=== PATIENT | female | born 1955 | race Caucasian/White ===

== ENCOUNTER 2019-01-20 23:13 | Inpatient (IN) | payer MEDICAID ==
[~2019-01-20] VITALS: Ht 165.1 cm; Wt 71.7 kg
[2019-01-21] MEDS ORDERED: ATARAX,VISTARIL50 MG PO (00:06)
[2019-01-21] MEDS ORDERED: LOXAPINE SUCCIN10 MG PO (00:08)
[2019-01-21] MEDS ORDERED: VRAYLAR6 MG PO (00:10)
[2019-01-21] MEDS ORDERED: ZYPREXA5 M1 PO (00:11)
[2019-01-21] MEDS ORDERED: NORVASC10 MG PO (00:12)
[2019-01-21] MEDS ORDERED: ASPIRIN ADULT L81 M1 PO (00:12)
[2019-01-21] MEDS ORDERED: LIPITOR80 MG PO (00:13)
[2019-01-21] MEDS ORDERED: FEROSUL325 MG PO (00:14)
[2019-01-21] MEDS ORDERED: BENZTROPINE MESY1 MG PO (00:14)
[2019-01-21] MEDS ORDERED: KLONOPIN0.5 MG PO (00:15)
[2019-01-21] MEDS ORDERED: GLUCAGON EMERGEN1 M1 IJ (00:16)
[2019-01-21] MEDS ORDERED: LEVEMIR100 UNIT/1 SQ (00:17)
[2019-01-21] MEDS ORDERED: NOVOLOG10 ML SC (00:19)
[2019-01-21] MEDS ORDERED: SENNA LAXATIVE1 EACH PO (00:20)
--- NOTE | 2019-01-21 01:45 | NUR ---
DILIA HUTCHISON a 63 year old F admitted via stretcher from the ADMITTING as a voluntary admission. Arrived on unit at 0145. ALLERGIES: CLOZAPIN,HALDOL. Vital signs are: [id number]/73. The Legal Guardian,Sisi Wade,gave verbal consent over telephone for the following: Authorization For The Release of Medical Information, Clothing List, Consent to Voluntary Admission and Hospitalization, Consent and Release Forms/Receipt of Rights, Acknowledgement of Advance Directive Information, Behavioral Health Consent Form, and Informed Consent of Medications. Admitted under the services of Dr. BETTYE FLORES,[facility]. A search was conducted and hazardous articles were removed. Client was oriented to the unit. VIVI BARRERA
[2019-01-21 02:13] VITALS: BP 152/73
[2019-01-21 02:15] VITALS: BP 152/73
--- NOTE | 2019-01-21 02:30 | NUR ---
Skin assessment performed with consent of patient. Skin intact and no signs of any wounds noted.
--- NOTE | 2019-01-21 03:00 | NUR ---
Dr. Monaco here to see patient. Notified him of no wounds on patient after skin assessment was done. Awaiting orders.
--- NOTE | 2019-01-21 04:48 | NUR ---
Patient slept approx. 2 hours since being admitted this shift. Q 15 minute safety checks continued and maintained.
[2019-01-21 06:26] LABS: BILIRUBIN NEGATIVE (NEGATIVE); BLOOD NEGATIVE (NEGATIVE); CLARITY SL CLOUDY (CLEAR); COLOR YELLOW (YELLOW); GLUCOSE NEGATIVE (NEGATIVE); KETONE NEGATIVE (NEGATIVE); LEUKO ESTERASE 1+ (NEGATIVE); NITRITE NEGATIVE (NEGATIVE); UROBILINOGEN 0.2 E.U./dl (0.2-1.0)
[2019-01-21 07:30] LABS: BACTERIA 2+; WBC TNTC wbc/hpf (0-5)
[2019-01-21 07:32] VITALS: BP 139/70
--- NOTE | 2019-01-21 08:10 | NUR ---
Treatment Plan meeting with Dr. Trujillo, RN, AT, SW and Reception Specialist. Plan for discharge next week. Pt. came to [facility] from [facility].
--- NOTE | 2019-01-21 08:14 | NUR ---
DR. COFFEY ON UNIT TO ASSESS PT, UPDATE PROVIDED.
--- NOTE | 2019-01-21 10:09 | NUR ---
Spoke with Cristina at [facility]. Pt. is LTC at facility and will return at discharge. Facility has a VAN for transportation and will require several Day notice to arrange.
[2019-01-21 10:11] LABS: BASO # 0.1 10*3/uL (0.0-0.1); BASO % 0.7 % (0.0-1.0); EOS # 0.2 10*3/uL (0.0-0.4); EOS % 1.9 % (1.0-4.0); HEMOGLOBIN 11.2 g/dl (12.0-16.0); LYMPH # 2.2 10*3/uL (1.3-4.4); LYMPH % 25.4 % (27.0-41.0); MEAN CELL VOLUME 91.4 fl (81.0-99.0); MEAN CORPUSCULAR HGB 28.4 pg (27.0-31.0); MEAN CORPUSCULAR HGB CONC 31.1 g/dl (33.0-37.0); MEAN PLATELET VOLUME 12.9 fl (9.6-12.3); MONO # 0.5 10*3/uL (0.1-1.0); MONO % 6.1 % (3.0-9.0); NEUT # 5.8 10*3/uL (2.3-7.9); NEUT % 65.6 % (47.0-73.0); PLATELET COUNT AUTOMATED 212 10*3/uL (130-400); RED BLOOD COUNT 3.94 10*6/uL (4.10-5.10); RED CELL DISTRI WIDTH 14.2 % (0-14.5); WHITE BLOOD COUNT 8.8 10*3/uL (4.8-10.8)
[2019-01-21 10:30] LABS: ALBUMIN 3.4 gm/dl (3.1-4.5); CREATININE 1.7 mg/dL (0.55-1.02); POTASSIUM 4.1 mmol/L (3.5-5.1); TOTAL PROTEIN 7.6 gm/dL (6.4-8.2)
[2019-01-21 10:37] LABS: THYROID STIM HORMONE (HS) 0.626 uIU/ml (0.358-4.75)
[2019-01-21 11:18] LABS: VITAMIN D, 25-HYDROXY 11.1 ng/mL (30-100)
--- NOTE | 2019-01-21 11:24 | NUR ---
SPOKE DR. WRIGHT AT [phone], RE: PT LABS BACK FOR REVIEW, ADVSIED OF BUN AND CREATININE LEVELS ARE ELEVATED AND STAFF IS ENCOURAGING FLUIDS. NO FURHTER ORDERS AT THIS TIME.
--- NOTE | 2019-01-21 11:46 | NUR ---
AM GROUP PT WAS PRESENT AT THE START OF GROUP AND PARTICIPATED BY DRAWING WITH MARKERS. PT WAS SELECTIVELY MUTE AND CONTINUED TO GET UP AND LEAVE THE GROUP ROOM. PT EXHIBITED NO AGITATION OR AGGRESSION WHILE IN THE GROUP ROOM
--- NOTE | 2019-01-21 13:58 | NUR ---
PHYSICAL THERAPY Physical therapy screen complete. Patient independent with ambulation in room and throughout BHU. Discharge PT order. Thank you. Tati Harris,PT,DPT.
--- NOTE | 2019-01-21 14:15 | NUR ---
Occupational Therapy referral received and screen completed. Nursing reports that patient is able to perform basic self care with supervision and cues. Patient is currently ambulating independently on the 3N unit and is preoccupied with the entrance door and attempts to leave the locked unit. At this time no further OT indicated. Discharge OT referral. Thank you. Fanny Soto OTr/Jackie
--- NOTE | 2019-01-21 15:48 | NUR ---
PM GROUP/ART AND MUSIC PT WAS PRESENT AT THE START OF AFTERNOON GROUP THERAPY AND WAS GIVEN MARKERS AND PAPER. PT GOT UP AND STATED, "JW IS WAITING FOR ME AT THE DOOR. I GOTTA GO MEET HIM THERE." PT LEFT THE ACTIVITY ROOM AND WENT TOWARDS THE EXIT. PT WAS NOT REDIRECTABLE AND REFUSED TO RETURN TO THE GROUP.
--- NOTE | 2019-01-21 18:16 | NUR ---
SPOKE WITH [facility] PER DR. WRIGHT REQUEST FOR PAST LABS SPECIFICALLY BMP, PER NURSE SHE WILL NOTIFY THE CURATOR OF PHOTOGRAPHY AND PRINTS AND FAX THEM OVER SOON POSSIBLE. DR. WRIGHT NOTIFIFED.
[2019-01-21 19:54] VITALS: BP 116/84
--- NOTE | 2019-01-21 20:00 | NUR ---
Patient resting quietly with no c/o discomfort. Respirations easy and regular. Vital signs stable. No overt distress. OPAL BABB
--- NOTE | 2019-01-21 22:51 | NUR ---
PT PACING HALLS, SPEECH GARBLED AND SLURRED. PT ASSESSED FOR ORIENTATION LEVEL, MOOD AND AFFECT. ASSESSED FOR SI/HI. ASSESSED FOR HALLUCINATIONS OR DELUSIONS. PT APPEARS ORIENTED TO PERSON ONLY. MOOD IS ANXIOUS, PT STATING SOMETHING ABOUT HER BROTHER. AFFECT IS FLAT. PT SPEECH IS GARBLED AND SLURRED, HINDERING FULL ASSESSMENT. PT DENIES WANTING TO HARM SELF OR OTHERS. PT IS IN HALLS LOOKING FOR HER BROTHER. PT REDIRECTED, REORIENTED, PROVIDED WITH CALM 1:1. PT ASSISTED BACK TO BED. WILL CONTINUE TO REORIENT AND REDIRECT PT APPROPRIATE. WILL ENCOURAGE PT TO VERBALIZE WANTS AND NEEDS. WILL CONTINUE TO ASSESS FOR HALLUCINATIONS AND DELUSIONS. Q15 MONITORING FOR SAFETY.
--- NOTE | 2019-01-22 01:59 | NUR ---
24 HR chart check completed.
--- NOTE | 2019-01-22 06:01 | NUR ---
PT SLEPT AN INTERRUPTED 6 HOURS THIS SHIFT.
--- NOTE | 2019-01-22 07:49 | NUR ---
PT AWAKE AND ALERT. DIRECTED AWAY FROM THE UNIT DOOR THIS AM BY MENTAL HEALTH WORKER AND ASSISTED TO DINING ROOM FOR BREAKFAST. PT REFUSED VITALS THIS AM DESPITE MULITPLE ATTEMPTS, PT SWATTING STAFF AWAY. NO DISTRESS NOTED.
--- NOTE | 2019-01-22 08:07 | NUR ---
ON UNIT TO SEE PT AT THIS TIME. UPDATE GIVEN.
--- NOTE | 2019-01-22 08:17 | NUR ---
ON UNIT TO SEE PT AT THIS TIME, MADE AWARE PT REFUSED VITALS THIS AM. ALSO MADE AWARE PT'S MEDICAL MEDICATIONS HAVE NOT YET BEEN ORDERED. REVIEWED LABS SHOWING BUN/CR TRENDS FROM [facility] REQUESTED PER . MADE AWARE OF PRELIMINARY URINE CULTURE SHOWING 75,000 HEAVY GNB. NNO RECIEVED AT THIS TIME.
--- NOTE | 2019-01-22 08:25 | NUR ---
CALL PLACED TO PHARMACY REGARDING LOXAPINE, SPOKE TO YAMILETH, PHARMACIST. YAMILETH STATES MEDICATION WILL BE RECIEVED ON SHIPMENT TODAY AROUND 11AM AND THEN SENT OVER. UPDATED, STATES OK TO GIVE MEDICATION ONCE IT IS RECIEVED.
--- NOTE | 2019-01-22 08:30 | NUR ---
Treatment Plan meeting with Dr. Trujillo, RN, AT, and Project Admin. Plan for discharge next week. Pt. will return to [facility] in [place].
--- NOTE | 2019-01-22 11:57 | NUR ---
AM GROUP NO AM GROUP THERAPY THIS MORNING DUE TO 1:1 WITH NEW PT
--- NOTE | 2019-01-22 14:04 | NUR ---
PT LAID HER SELF ON THE FLOOR IN QUIET ROOM. LYING ON ABDOMEN. PT STATED SHE IS READING A BOOK UNDER A FORT. NO VISIBLE BOOKS ON THE FLOOR WITH THE PT, HOWEVER PT IS SPEAKING LIKE SHE IS READING A BOOK. WILL CONTINUE TO MONITOR PT.
--- NOTE | 2019-01-22 15:53 | NUR ---
PM GROUP PT WAS PRESENT FOR AFTERNOON GROUP THERAPY BUT IS UNABLE TO PARTICIPATE DUE TO COGNITIVE IMPAIRMENT
--- NOTE | 2019-01-22 18:01 | NUR ---
P- AUDITORY AND VISUAL HALLUCINATIONS, NONSENSICAL CHANTING OF SPEECH, BIZARRE BEHAVIORS, SITTING ON THE FLOOR, DANCING IN HALLWAY. HOARDING ITEMS, PACING HALLWAYS, ATTEMPTING TO HIDE FROM PHYSICIAN'S UNDER TABLE IN DINING ROOM. I- ORIENTATION, MOOD AND BEHAVIOR ASSESSED. ASSESSED PT FOR SI/HI, INTENT OR PLAN. ASSESSED PT FOR S/S HALLUCINATIONS, PARANOIA AND/OR DELUSIONS. MEDICATIONS ADMINISTERED PER PHYSICIAN'S ORDERS. ASSISTANCE WITH ADL CARE PROVIDED NEEDED. ENCOURAGED PT TO ATTEND AND PARTICIPATE IN [facility] GROUPS AND ACTIVITIES. R- PT IS ALERT AND ORIENTED TO PERSON ONLY, DOES NOT ANSWER OTHER ORIENTATION QUESTIONS APPROPRIATELY. RESPS EASY AND EVEN ON ROOM AIR. MOOD APPEARS LABILE, PT ANGRY/IRRITABLE THIS AM, SWATTING AWAY STAFF, THIS AFTERNOON PT HAS BEEN MORE EASILY APPROACHED, SMILED AT STAFF. PT DENIES SI/HI, INTENT OR PLAN. PT WITH NOTED RESPONSE TO APPARENT VISUAL AND AUDITORY HALLUCINATIONS: TALKING TO UNSEEN OTHERS, GESTURING INTO THE AIR. THIS MORNING PT NOTED WITH SIGNIFICANT ORAL SECRETIONS AND NONSENSICAL CHANTING OF SPEECH. THIS AFTERNOON SPEECH HAS BECOME MORE APPROPRIATE, ANSWERING SIMPLE QUESTIONS AND A DECREASE IN ORAL SECRETIONS HAS BEEN NOTED. PT APPEARS PARANOID AT TIMES, ATTEMPTED TO HIDE UNDER DINING ROOM TABLE DURING HOSPITALIST ROUNDS. PT IS MEDICATION COMPLIANT WITHOUT DIFFICULTY. TAKING PO FLUIDS WELL. INTAKES GOOD FOR MEALS. PT CONTINUES TO FREQUENTLY PACE HALLWAYS, DISPLAYS HOARDING BEHAVIORS, CARRYING AROUND MULTIPLE ATTEMPTS FROM BEDROOM. NO AGGRESSIVE BEHAVIORS OR ELOPEMENT ATTEMPTS THIS AFTERNOON. NO DISTRESS NOTED. P- PLAN TO CONTINUE CURRENT TREATMENT, CONTINUE TO MONITOR MOOD AND BEHAVIORS, PROVIDE APPROPRIATE REORIENTATION, REDIRECTION AND 1:1 NEEDED. CONTINUE TO ENCOURAGE MEDICATION COMPLIANCE WELL GROUP ATTENDANCE AND PARTICIPATION.
--- NOTE | 2019-01-22 18:20 | NUR ---
SHIFT CHART CHECK COMPLETED.
--- NOTE | 2019-01-22 18:47 | NUR ---
MADE AWARE PT RECIEVED LOXAPINE AT 1433 AFTER BEING RECIEVED FROM PHARMACY, VERIFIED PT MAY STILL RECIEVE HS DOSE SCHEDULED WELL.
[2019-01-22 19:45] VITALS: BP 121/58
--- NOTE | 2019-01-22 21:20 | NUR ---
Patient alert and oriented to person only. Patient's speech is garbled and slurred. Patient was isolative to her room this evening but then came out to leonard and sat on floor. Patient refused to stand up. Staff assisted patient to wheelchair,wheeled into quiet room. Patient stood from wheelchair and then sat in chair in room. Patient compliant with medications without difficulty. Patient has since stood up and walked to her room. Gait steady. Provided 1:1 for emotional support. Plan to continue to encourage medication compliance and to continue to provide 1:1 for emotional support. Q 15 minute safety checks continued and maintained. See [facility] flwosheet for further documentation.
--- NOTE | 2019-01-23 00:37 | NUR ---
24 HR chart check completed.
--- NOTE | 2019-01-23 05:45 | NUR ---
Patient slept approx. 2 1/2 hours throughout shift. Q 15 minute safety checks continued and maintained.
--- NOTE | 2019-01-23 06:41 | NUR ---
Refused bedside glucose check at this time.
[2019-01-23 07:37] VITALS: BP 126/86
--- NOTE | 2019-01-23 07:57 | NUR ---
DR. COFFEY ON UNIT TO ASSESS PT, UPDATE PROVIDED.
--- NOTE | 2019-01-23 09:00 | NUR ---
Treatment Plan meeting was held this a.m. with Dr. Trujillo, RN, AT, SW and Houseman. Plan for discharge Next week. Pt. will return to [facility]. Clinical Updates faxed to facility.
--- NOTE | 2019-01-23 11:00 | NUR ---
SPOKE WITH DR. MINAYA AT [phone] RE: PT URINE C&S RESULTS, NO FURTHER ORDERS AT THIS TIME.
--- NOTE | 2019-01-23 15:10 | NUR ---
P: PT MOOD IS IRRITABLE AND LABILE. PT RESTLESS, PACING AT TIMES AND SITTING ON THE FLOOR AT OTHERS. PT OBSERVED TO BE RESPONDING TO UNSEEN OTHERS AND PICKING IMAGINERY OBJECTS OFF THE FLOOR. I: PROVIDED EMOTIONAL SUPPORT AND 1:1 FOR PT TO VOICE FEELINGS, ENCOURAGED MED COMPLIANCE, PRESENTED REALITY AND PROVIDED RE-ORIENTATION R: PT CONTINUES TO BE IRRITABLE AND LABILE, CONTINUES TO SIT ON FLOOR AT TIMES, REDIRECTION AND RE-ORIENTATION IS INEFFECTIVE. PT MED COMPLIANT WITH MINIMAL DIFFICULTY, UNABLE TO PROVIDE MED EDUCATION D/T COGNITION. PT ALERT TO PERSON ONLY, CONFUSION AND SHORT TERM MEMORY DEFICITS NOTED PER PT BASELINE. PT AMBULATORY THROUGHOUT UNIT, GAIT STEADY. PT CONTINENT OF BOWEL AND BLADDER. PT CONTINUES TO RESPOND TO UNSEEN OTHERS. P: MONITOR PT BEHAVIORS ON Q15 MIN SAFETY CHECKS, ENCOURAGE MED COMPLIANCE, PROVIDE EMOTIONAL SUPPORT AND 1:1 FOR PT TO VOICE FEELINGS, CONTINUE TO PROVIDE REDIRECTION AND PRESENT REALITY.
[2019-01-23 19:36] VITALS: BP 123/79
--- NOTE | 2019-01-24 01:10 | NUR ---
P- PT SITTING SELF ON FLOOR AND OBSERVED TO BE RESPONDING TO UNSEEN OTHERS AND PICKING IMAGINERY OBJECTS OFF THE FLOOR. I- PROVIDED 1:1 FOR VENTILATION OF FEELINGS WITH EMOTIONAL SUPPORT NEEDED. PRESENTED REALITY AND PROVIDED RE-ORIENTATION WITH REDIRECTION NEEDED. ENCOURAGED MEDICATION COMPLIANCE WITH EDUCATION. R- PT ALERT AND ORIENTED TO SELF, CONFUSED IN ALL OTHER AREAS. PT CALM, ISOLATIVE TO SELF. PT AMBULATORY THROUGHOUT UNIT, GAIT STEADY. PT CONTINUES TO SIT OR LAY ON FLOOR DESPITE REDIRECTION FROM STAFF. PT MEDICATION COMPLIANT WITHOUT DIFFICULTY, UNABLE TO EDUCATE DUE TO COGNITION. PT RESPONDING TO UNSEEN OTHERS, UNRECEPTIVE TO THERAPEUTIC INTERVENTIONS. PT VOICES NO SI/HI OR PAIN. NO OTHER PHYSICAL COMPLAINTS NOTED. PT CURRENTLY LAYING DOWN IN QUIET ROOM, RESPIRATIONS EASY AND REGULAR, NO SIGNS OR SYMPTOMS OF DISTRESS NOTED. P- MONITOR PT BEHAVIORS ON Q15 MIN SAFETY CHECKS, ENCOURAGE MED COMPLIANCE, PROVIDE EMOTIONAL SUPPORT AND 1:1 FOR PT TO VOICE FEELINGS, CONTINUE TO PROVIDE REDIRECTION AND PRESENT REALITY. MONITOR SLEEP.
--- NOTE | 2019-01-24 03:25 | NUR ---
24 HOUR CHART CHECK COMPLETED.
--- NOTE | 2019-01-24 06:14 | NUR ---
PATIENT OBSERVED ON Q 15 MIN CHECKS TO HAVE SLEPT APPROX 3 HOURS INTERRUPTED WITH MULTIPLE AWAKENINGS NOTED OF PATIENT PACING HALLWAY WITH EXIT SEEKING BEHAVIORS. PT REDIRECTED WITH MINIMAL DIFFICULTY, ELOPEMENT PRECAUTIONS CONTINUED. NO SIGNS OR SYMPTOMS OF DISTRESS NOTED.
--- NOTE | 2019-01-24 06:44 | NUR ---
PATIENT REFUSED AM GLUCOSE AFTER X2 ATTEMPTS, UNRECEPTIVE TO EDUCATION.
[2019-01-24 07:57] VITALS: BP 121/65
--- NOTE | 2019-01-24 12:25 | NUR ---
AM GROUP/EXERCISES/BINGO! PT IN ROOM AT THIS TIME AND CHOSE NOT TO ATTEND. PT WILL CONTINUE TO BE ENCOURAGED TO ATTEND AN DPARTICIPATE TO BEST OF ABILITY IN FUTURE RGOUP SESSIONS.
--- NOTE | 2019-01-24 15:49 | NUR ---
PM GROUP/ART/FOOTBALL PT ATTENDED BUT UNABLE TO PARTICIPATE DUE TO LEVELS OF CONFUSION. PT WALKING IN AND OUT OF ACTIVITY ROOM STATING "I WANT TO EAT MY LUNCH FIRST" PT EVENTUALLY SAT IN ACTIVITY ROOM AND BEGAN TO COLOR, BUT SOON FELL ASLEEP REMAINDER OF GROUP. PT WILL CONTINUE TO BE ENCOURAGED TO ATTEND AN DPARTICIPATE TO BEST OF PT ABILITY.
--- NOTE | 2019-01-24 17:55 | NUR ---
INVEGA SUSTENNA 234 ADMINISTERED TO L DELTOID. PT TOLERATED WELL.
--- NOTE | 2019-01-24 18:28 | NUR ---
PT HAS BEEN LAYING ON FLOOR IN QUIET ROOM. PT OBSERVED TO BE SPEAKING TO UNSEEN OTHERS. PT STATES SHE "WANTS TO" LAY ON THE FLOOR. PT WAS CURLED UP WITH BOOKS, PAPERS, AND BLANKET. RESTING QUIETLY AT THIS TIME. WHEN PATIENT OBSERVED SPEAKING WITH UNSEEN OTHERS, PT STATES THAT SHE IS TALKING TO HERSELF. PT HAS BEEN MEDICATION COMPLIANT. PT ASKED QUESTIONS ABOUT MEDICATIONS AND VERBALIZED UNDERSTANDING OF THEM. PT SPEECH REMAINS GARBLED, BUT PATIENT IS CURRENTLY COMMUNICATING WANTS AND NEEDS TO STAFF SUCH "COLA" OR "VANILLA PUDDING". WILL CONTINUE TO ENCOURAGE MEDICATION COMPLIANCE. WILL CONTINUE TO ENCOURAGE PARTICIPATION GROUP THERAPY. WILL ENCOURAGE PT TO INTERACT WITH PEERS AND STAFF. Q15 MIN MONITORING PER POLICY.
[2019-01-24 20:00] VITALS: BP 136/83
--- NOTE | 2019-01-25 04:28 | NUR ---
P- PT OBSERVED TO BE RESPONDING TO UNSEEN OTHERS AND PICKING IMAGINARY OBJECTS OFF THE FLOOR. I- PROVIDED 1:1 FOR VENTILATION OF FEELINGS WITH EMOTIONAL SUPPORT NEEDED. PRESENTED REALITY AND PROVIDED RE-ORIENTATION WITH REDIRECTION NEEDED. ENCOURAGED MEDICATION COMPLIANCE WITH EDUCATION. R- PT ALERT AND ORIENTED TO SELF, CONFUSED IN ALL OTHER AREAS. PT CALM, ISOLATIVE TO SELF. PT AMBULATORY THROUGHOUT UNIT, GAIT STEADY. PT MEDICATION COMPLIANT WITHOUT DIFFICULTY, UNABLE TO EDUCATE DUE TO COGNITION. PT RESPONDING TO UNSEEN OTHERS, UNRECEPTIVE TO THERAPEUTIC INTERVENTIONS. EASILY REDIRECTED WHEN APPROPRIATE. PT VOICES NO SI/HI OR PAIN. NO OTHER PHYSICAL COMPLAINTS NOTED. PT CURRENTLY LAYING DOWN IN ROOM, RESPIRATIONS EASY AND REGULAR, NO SIGNS OR SYMPTOMS OF DISTRESS NOTED. P- MONITOR PT BEHAVIORS ON Q15 MIN SAFETY CHECKS, ENCOURAGE MED COMPLIANCE, PROVIDE EMOTIONAL SUPPORT AND 1:1 FOR PT TO VOICE FEELINGS, CONTINUE TO PROVIDE REDIRECTION AND PRESENT REALITY. MONITOR SLEEP.
--- NOTE | 2019-01-25 05:59 | NUR ---
PATIENT OBSERVED ON Q 15 MIN CHECKS TO HAVE SLEPT APPROX 5 HOURS WITH BRIEF AWAKENINGS NOTED TO USE THE RESTROOM. NO SIGNS OR SYMPTOMS OF DISTRESS NOTED.
--- NOTE | 2019-01-25 06:18 | NUR ---
24 HOUR CHART CHECK COMPLETED.
[2019-01-25 07:52] VITALS: BP 125/57
--- NOTE | 2019-01-25 09:03 | NUR ---
Patient resting quietly with no c/o discomfort. Respirations easy and regular. Vital signs stable. No overt distress. OPAL BABB
--- NOTE | 2019-01-25 12:27 | NUR ---
AM GROUP/BIRDHOUSES/MUSIC PT ATTENDED AND PARTICIPATED BY COLORING FIRST HALF OF GROUP, BUT FALLING ASLEEP ON AND OFF WHILE COLORING. THE SECOND PART OF GROUP PT STOOD BEHIND A PEER THAT WAS SITTING IN "HER" SEAT YELLING AT HER STATING "THIS IS MY SEAT YOU CANT SIT HERE ALL DAY ITS TIME FOR YOU TO GET UP" NURSES AND THIS STAFF UNABLE TO REDIRECT PT. PEER EVENTUALLY MOVED AND PT SAT DOWN. PT WILL CONTINUE TO BE ENCOURAGED TO ATTEND AND PAERTICIPATE TO BEST OF PT ABILITY IN FUTURE GROUP SESSIONS.
[2019-01-25 20:00] VITALS: BP 107/73
--- NOTE | 2019-01-25 23:00 | NUR ---
P- PT SITTING SELF ON FLOOR AND OBSERVED TO BE RESPONDING TO UNSEEN OTHERS AND PICKING IMAGINERY OBJECTS OFF THE FLOOR. PT ALSO COLLECTING ITEMS (MAGAZINES, PAPER, BOOKS) THROUGHOUT UNIT IN ATTEMPTS TO MARGO. I- PROVIDED 1:1 FOR VENTILATION OF FEELINGS WITH EMOTIONAL SUPPORT NEEDED. PRESENTED REALITY AND PROVIDED RE-ORIENTATION WITH REDIRECTION NEEDED. ENCOURAGED MEDICATION COMPLIANCE WITH EDUCATION. R- PT ALERT AND ORIENTED TO SELF, CONFUSED IN ALL OTHER AREAS. PT CALM, ISOLATIVE TO SELF. PT AMBULATORY THROUGHOUT UNIT, GAIT STEADY. PT CONTINUES TO PUT SELF ON FLOOR OR FIELD CROP II FARMWORKER RANDOM ITEMS DESPITE REDIRECTION FROM STAFF. PT MEDICATION COMPLIANT WITHOUT DIFFICULTY, UNABLE TO EDUCATE DUE TO COGNITION. PT RESPONDING TO UNSEEN OTHERS, UNRECEPTIVE TO REALITY ORIENTATION OR OTHER THERAPEUTIC INTERVENTIONS. PT VOICES NO SI/HI OR PAIN. NO OTHER PHYSICAL COMPLAINTS NOTED. PT CURRENTLY LAYING DOWN IN ROOM AND BED, RESPIRATIONS EASY AND REGULAR, NO SIGNS OR SYMPTOMS OF DISTRESS NOTED. P- MONITOR PT BEHAVIORS ON Q15 MIN SAFETY CHECKS, ENCOURAGE MED COMPLIANCE, PROVIDE EMOTIONAL SUPPORT AND 1:1 FOR PT TO VOICE FEELINGS, CONTINUE TO PROVIDE REDIRECTION AND PRESENT REALITY. MONITOR SLEEP.
--- NOTE | 2019-01-26 00:42 | NUR ---
24 HOUR CHART CHECK COMPLETED.
--- NOTE | 2019-01-26 04:59 | NUR ---
PATIENT OBSERVED ON Q 15 MIN CHECKS TO HAVE SLEPT APPROX 6 HOURS WITH X2 BRIEF AWAKENINGS TO USE THE RESTROOM, NO SIGNS OR SYMPTOMS OF DISTRESS NOTED.
[2019-01-26 08:16] VITALS: BP 137/69
--- NOTE | 2019-01-26 10:01 | NUR ---
PT RECEIVED INVEGA SUSTENNA INJECTION TO RIGHT DELTOID, PT TOLERATED WITHOUT ISSUE.
--- NOTE | 2019-01-26 10:22 | NUR ---
P: PT HOARDING ITEM SUCH MAGAZINES, TISSUES, PAPER TOWELS, ETC IN HER ROOM AND POCKETS OF CLOTHING AND CARRYING MULTIPLE ITEMS AROUND. PT IRRITABLE AT TIMES WITH STAFF. PT LABILE. PT OBSERVED TO BE PICKING IMAGINERY OBJECTS OFF THE FLOOR AND TALKING TO UNSEEN OTHERS. PT OBSERVED TO BE SITTING ON THE FLOOR MULTIPLE TIMES, THROUGHOUT THE UNIT. I: PROVIDED EMOTIONAL SUPPORT AND 1:1 FOR PT TO VOICE FEELINGS, ENCOURAGE MED COMPLIANCE AND PROVIDE MED EDUCATION, DISCOURAGE PT FROM HOARDING ITEMS AND CARRYING MULTIPLE ITEMS. PRESENTED REALITY AND RE-ORINETED R: PRESENTATION OF REALITY AND RE-ORINENTATION INEFFECTIVE DUE TO COGNITION. UNABLE TO PROVIDE MED EDUCATION D/T COGNITION. PT MED COMPLIANT WITHOUT DIFFICULTY. PT CONTINUES TO CARRY AROUND MULTIPLE ITEAMS AND MARGO THINGS IN HER POCKET. PT CONTINUES TO SIT ON THE FLOOR PER HER WISHES. PT CONTINUES TO HAVE AUDITORY/VISUAL HALLUCINATIONS. PT ALERT TO PERSON ONLY, CONFUSION AND SHORT TERM MEMORY DEFICITS NOTED PER PT BASELINE. PT AMBULATORY THROUGHOUT UNIT, GAOT SHUFFLING AND OCCASIONALLY UNSTEADY. PT CONTINENT OF BOWEL AND BLADDER, EPISODES OF INCONTINENCE NOTED, CARE PROVIDED NEEDED. P: MONITOR PT BEHAVIOR SON Q15 MIN SAFETY CHECKS, ENCOURAGE MED COMPLIANCE, RE-ORIENT AND PRESENT REALITY NEEDED, PROVIDE EMOTIONAL SUPPORT AND 1:1 FOR PT TO VOICE FEELINGS.
--- NOTE | 2019-01-26 10:46 | NUR ---
DR. PERAZA ON UNIT TO ASSESS PT, UPDATE PROVIDED.
--- NOTE | 2019-01-26 12:31 | NUR ---
AM GROUP PT WAS IN AND OUT OF THE GROUP ROOM AND DID NOT PARTICIPATE.
--- NOTE | 2019-01-26 16:44 | NUR ---
P: PT EXIT SEEKING, DOWN AT THE DOORS, PUSHING AND BANGING ON DOORS. I: PROVIDED REDIRECTION AND 1:1 FOR PT TO VOICE FEELINGS R: REDIRECTION MINIMALLY EFFECTIVE, PT CONTINUES TO EXIT SEEK AT TIMES. P: MONITOR PT BEHAVIORS ON Q15 MIN SAFETY CHECKS, PROVIDE REDIRECTION AND 1:1 FOR PT TO VOICE FEELINGS.
--- NOTE | 2019-01-26 17:10 | NUR ---
PM GROUP/MUSIC/ART PT ATTENDED GROUP AND WANTED TO COLOR A PICTURE BUT FELL ASLEEP SHORTLY AFTER. PT WOKE UP NOT TOO LONG AFTER SLEEPING AND WAS ON THE FLOOR ON HANDS AND KNEES. PT STATED "I'M LOOKING FOR SOME THINGS" PT ROAMING ACTIVITY ROOM AND HALLS. SOMETIMES THIS STAFF WOULD NOTICE PT DANCING TO THE BACKGROUND MUSIC. PT DID NOT EXPRESS ANY AGITATION OR AGGRESSION AT THIS TIME AND WILL CONTINUE TO ATTEND AN DBE ENCOURAGED TO PARTICIPATE TO BEST OF PT ABILITY.
[2019-01-26 19:15] VITALS: BP 132/68
--- NOTE | 2019-01-26 19:58 | NUR ---
24 HR chart check completed.
--- NOTE | 2019-01-26 20:33 | NUR ---
EVNING/RIDDLES/GAMES PT DID NOT ATTEND OR PARTICIPATE BUT REMAINED IN BED AT THIS TIME. PT WILL CONTINUE TO BE ENCOURAGED TO ATTEND AN DPARTICIPATE TO BEST OF PT ABILITY.
--- NOTE | 2019-01-26 22:44 | NUR ---
P-HALLUCINATIONS, CONFUSION, AGITATION, AGRESSION I-PROVIDE REDIRECTION NEEDED, MAINTAIN ELOPEMENT PRECAUTIONS, ADMININSTER MEDS, MONITOR SLEEP R-MOOD IS LABILE. ALERT TO PERSON ONLY. DOES GO TO DIFFERENT DOORS EXIT SEEKING. MEMORY DEFICITS, CONTINUES SLOW SHUFFLING GAIT AT TIMES. RESPONDING TO AUDITORY & VISUAL HALLUCINATIONS. NOTED TO DO A SLOW MOVING DANCE WHILE HOLDING HAND IN THE AIR. KEEPS TO HERSELF. HOARDS NUMEROUS ITEMS. WAS INCONTINET OF URINE. BECAME AGITATED & AGRESSIVE CURSING AT STAFF WHEN ASSISTED WITH HANDS ON CARE. MEDICATED WITH ATIVAN 1 MG IM AT 2128. TOOK HS MEDS CRUSHED & MIXED IN APPLESAUCE P-CONTINUE TO MONITOR. PROVIDE PHYSICAL ASSISTANCE & EMOTIONAL SUPPORT NEEDED.
--- NOTE | 2019-01-27 05:24 | NUR ---
PT HAS SLEPT PAST 2244
[2019-01-27 07:43] VITALS: BP 129/67
--- NOTE | 2019-01-27 08:30 | NUR ---
Treatment Plan meeting with Dr. Trujillo, RN, AT, SW and Tile Classifier. Plan for discharge Saturday. Will reach out to [facility] today to discuss discharge planning due to transportation issues.
--- NOTE | 2019-01-27 10:06 | NUR ---
DR. PENN ON UNIT TO ASSESS PT, UPDATE PROVIDED.
--- NOTE | 2019-01-27 10:27 | NUR ---
Spoke with Cristina at [facility]. Pt. will need to discharge due to transportation issues. Shop Repairer time 2:00 p.m. by facility brian.
--- NOTE | 2019-01-27 11:38 | NUR ---
P: PT LABILE, IRRITABLE AT TIMES. PT OBSERVED TO BE SPEAKING TO UNSEEN OTHERS, AND PICKING AT USEEN OBJECTS IN THE AIR. I: PROVIDED EMOTIONAL SUPPORT AND 1:1 FOR PT TO VOICE FEELINGS, MONITOR PT BEHAVIORS ON Q15 MIN SAFETY CHECKS, PRESENT REALITY AND PROVIDE RE-ORIENTATION R: PRESENTATION OF REALITY AND RE-ORIENTATION INEFFECTIVE D/T COGNITION. PT ALERT TO PERSON ONLY, CONFUSION AND SHORT TERM MEMORY DEFICITS NOTED PER PT BASELINE. PT AMBULATORY THROUGHOUT UNIT, GAIT OCCASIONALLY UNSTEADY. PT CONTINENT OF BOWEL AND BLADDER, EPISODES OF INCONTINENCE NOTED, CARE PROVIDED NEEDED. P: MONITOR PT BEHAVIORS ON Q15 MIN SAFETY CHECKS, ENCOURAGE MED COMPLIANCE AND PROVIDE MED EDUCATION, CONTINUE TO PROVIDE RE-ORIENTATION AND PRESENT REALITY, PROVIDE EMOTIONAL SUPPORT AND 1:1 FOR PT TO VOICE FEELINGS.
--- NOTE | 2019-01-27 11:47 | NUR ---
AM GROUP/POSITIVITY PT DID NOT ATTEND MORNING GROUP THERAPY AND IS INCAPABLE AT THIS TIME TO PARTICIPATE. PT SAT IN THE DAY ROOM A LITTLE BUT LEFT THE ROOM AND WANDERED THE HALLS.
--- NOTE | 2019-01-27 15:43 | NUR ---
PM GROUP/ART AND MUSIC PT WAS IN AND OUT OF THE GROUP ROOM BUT IS UNABLE TO PARTICIPATE AT THIS TIME DUE TO COGNITIVE IMPAIRMENT. PT IS SELECTIVELY MUTE AND WILL NOT RESPOND TO QUESTIONS. PT WAS AT ONE TIME CRAWLING ON THE FLOOR, "SCOOPING" UNSEEN OBJECTS UP.
[2019-01-27 19:16] VITALS: BP 121/66
--- NOTE | 2019-01-27 20:03 | NUR ---
24 HR chart check completed.
--- NOTE | 2019-01-27 23:59 | NUR ---
P-HALLUCINATIONS, CONFUSION I-PROVIDE REDIRECTION NEEDED, MAINTAIN ELOPEMENT PRECAUTIONS, ADMININSTER MEDS, MONITOR SLEEP R-MOOD IS STABLE. ALERT TO PERSON ONLY. MEMORY DEFICITS. HAS SMILED AT STAFF OCCASIONALLY. SLOW GAIT. RESPONDING TO AUDITORY & VISUAL HALLUCINATIONS. KEEPS TO HERSELF. CONTINUES TO MARGO ITEMS. WAS INCONTINET OF URINE. TOOK HS MEDS CRUSHED & MIXED IN PUDDING. NO AGITATION OR YELLING OUT THIS EVENING. P-CONTINUE TO MONITOR. PROVIDE PHYSICAL ASSISTANCE & EMOTIONAL SUPPORT NEEDED.
--- NOTE | 2019-01-28 02:42 | NUR ---
PT HAS BEEN AWAKE SINCE 129. IN HER ROOM TURNING LIGHTS OFF & ON. TAKING HER CLOTHES OFF. CURSING AT STAFF WHEN REDIRECTED. DOING HER SHUFFLING GAIT IN A SQUARE LIKE PATTERN & RAISING HER ARM ABOVE HER HEAD & MOVING IT BACK & FORTH IN A KNOCKING MOTION. OPENING & CLOSING HER DOOR & KEEPING HER ROOM MATE AWAKE. PT STATED SHE WASNT GOING BACK TO SLEEP. SPEECH GARBLED & DIFFICULT TO UNDERSTAND. PT TAKEN TO DINING ROOM SO SHE COULD LOOK AT HER MAGAZINES.
--- NOTE | 2019-01-28 05:34 | NUR ---
PT ONLY SLEPT FROM [id number]. CONTINUES TO BE AWAKE & WALKING AROUND IN THE DINING ROOM.
[2019-01-28 08:08] VITALS: BP 112/54
--- NOTE | 2019-01-28 11:51 | NUR ---
AM GROUP PT ATTENDED AND PARTICIPATED IN GROUP BY COLORING WITH CRAYONS. PT WAS QUIET AND ON TASK. PT EXHIBITED NO AGITATION OR AGGRESSION WHILE IN GROUP
--- NOTE | 2019-01-28 15:36 | NUR ---
PT CONFUSED, APPEARS TO BE SPEAKING WITH UNSEEN OTHERS AND PICKING UP OBJECTS OFF FLOOR THAT ARE NOT VISIBLE. PT PROVIDED WITH REDIRECTION, ENCOURAGED TO VERBALIZE INTERNAL THOUGHT PROCESS, PRESENTED WITH REALITY. REDIRECTION SOMEWHAT EFFECTIVE, PT BECOMES FIXATED ON CERTAIN THINGS, BECOMING INCREASINGLY AGITATED UNTIL SHE RECEIVES THE OBJECT SUCH BLANKETS, COMB, SHOES, ETC. PT NOT RECEPTIVE TO REALITY PRESENTATION. SPEECH GARBLED. WILL CONTINUE TO MONITOR PT FOR HALLUCINATIONS AND DELUSIONS. WILL CONTINUE TO REORIENT, REDIRECT, AND PRESENT REALITY APPROPRIATE. WILL CONTINUE TO ADMINISTER MEDICATION PRESCRIBED AND ENCOURAGE MEDICATION COMPLIANCE. Q15 MIN MONITORING PER SAVI.
--- NOTE | 2019-01-28 15:39 | NUR ---
PM GROUP PT DID NOT ATTEND AFTERNOON GROUP THERAPY. PT WAS IN BED RESTING
[2019-01-28 19:43] VITALS: BP 115/59
--- NOTE | 2019-01-29 03:12 | NUR ---
P- PT SITTING SELF ON FLOOR AND OBSERVED TO BE RESPONDING TO UNSEEN OTHERS AND PICKING IMAGINERY OBJECTS OFF THE FLOOR. PT ALSO COLLECTING ITEMS (MAGAZINES, PAPER, BOOKS) THROUGHOUT UNIT IN ATTEMPTS TO MARGO. I- PROVIDED 1:1 FOR VENTILATION OF FEELINGS WITH EMOTIONAL SUPPORT NEEDED. PRESENTED REALITY AND PROVIDED RE-ORIENTATION WITH REDIRECTION NEEDED. ENCOURAGED MEDICATION COMPLIANCE WITH EDUCATION. R- PT ALERT AND ORIENTED TO SELF, CONFUSED IN ALL OTHER AREAS PER PTS BASELINE. PT CALM, ISOLATIVE TO SELF. PT AMBULATORY THROUGHOUT UNIT, GAIT STEADY. PT CONTINUES TO PUT SELF ON FLOOR OR MARINE ENGINE DRIVER RANDOM ITEMS DESPITE REDIRECTION FROM STAFF. PT MEDICATION COMPLIANT WITHOUT DIFFICULTY, UNABLE TO EDUCATE DUE TO COGNITION. PT RESPONDING TO UNSEEN OTHERS, UNRECEPTIVE TO REALITY ORIENTATION OR OTHER THERAPEUTIC INTERVENTIONS. PT VOICES NO SI/HI OR PAIN. NO OTHER PHYSICAL COMPLAINTS NOTED. PT CURRENTLY LAYING DOWN IN ROOM AND BED, RESPIRATIONS EASY AND REGULAR, NO SIGNS OR SYMPTOMS OF DISTRESS NOTED. P- MONITOR PT BEHAVIORS ON Q15 MIN SAFETY CHECKS, ENCOURAGE MED COMPLIANCE, PROVIDE EMOTIONAL SUPPORT AND 1:1 FOR PT TO VOICE FEELINGS, CONTINUE TO PROVIDE REDIRECTION AND PRESENT REALITY. MONITOR SLEEP.
--- NOTE | 2019-01-29 03:16 | NUR ---
P-IRRITABILITY, CONFUSION I-ASSESS ORIENTATION, MOOD, AND BEHAVIOR. REORIENT AND REDIRECT NEEDED. PROVIDE 1:1 FOR VENTILATION OF FEELINGS WITH EMOTIONAL SUPPORT NEEDED. ENCOURAGE MEDICATION COMPLIANCE AND EDUCATE. MONITOR SLEEP. R- PATIENT ALERT AND ORIENTED TO SELF, CONFUSED PER BASELINE. PT CALM, MOOD STABLE. MINIMAL IRRITABILITY/ AGITATION NOTED DURING INTERACTIONS WITH STAFF OR HANDS ON CARE, PT STATES "OH SHIT". NO SEXUALLY IN APPROPRIATE BEHAVIOR NOTED. PT REFUSED HS MEDICATIONS, STATING "I AINT TAKING THAT", UNABLE TO EDUCATE OR REDIRECT DUE TO COGNITION. PT VOICES NO SI/HI OR PAIN. NO NOTED RESPONDING TO INTERNAL STIMULI. PATIENT CURRENTLY LAYING DOWN WITH EYES CLOSED, RESPIRATIONS EASY AND REGULAR, NO SIGNS OR SYMPTOMS OF DISTRESS NOTED. P-CONTINUE TO MONITOR MOODS AND BEHAVIORS. PROVIDE REORIENTATION AND REDIRECTION NEEDED. PROVIDE 1:1 WITH EMOTIONAL SUPPORT. ENCOURAGE MEDICATION COMPLIANCE AND EDUCATE. MAINTAIN Q 15 MIN CHECKS.
--- NOTE | 2019-01-29 05:10 | NUR ---
24 HOUR CHART CHECK COMPLETED.
--- NOTE | 2019-01-29 06:14 | NUR ---
PATIENT OBSERVED ON Q 15 MIN SAFETY CHECKS TO HAVE SLEPT APPROX 7 HOURS WITH NO AWAKENINGS OR SIGNS AND SYMPTOMS OF DISTRESS NOTED.
[2019-01-29 07:47] VITALS: BP 120/65
--- NOTE | 2019-01-29 08:30 | NUR ---
Treatment Plan meeting with Dr. Trujillo RN, AT, SW and [employer]. Plan for discharge today. Pt. will return to [facility]. Facility to transport with rock picker time 2:00 p.m.
[2019-01-29] MEDS ORDERED: CLONAZEPAM1 MG PO (08:46)
[2019-01-29] MEDS ORDERED: PALIPERIDONE ER6 MG PO (08:46)
[2019-01-29] MEDS ORDERED: KLONOPIN2 M1 PO (08:46)
[2019-01-29] MEDS ORDERED: INVEGA SUSTENN156 MG IM (08:46)
[2019-01-29] MEDS ORDERED: [UNRECOGNIZED DRUG - OTHER] PO (08:46)
[2019-01-29] MEDS ORDERED: BENZTROPINE MESY1 MG PO (08:47)
--- NOTE | 2019-01-29 08:58 | NUR ---
NOTIFIED OF DISCHARGE FOR TODAY AT 2PM.
--- NOTE | 2019-01-29 09:01 | NUR ---
SPOKE WITH DR. MINAYA AND UPDATED ON DISCAHRGE AND MEDICAL MEDS NEEDING COMPLETED.
[2019-01-29] MEDS ORDERED: VITAMIN D5000 UNI1 PO (09:02)
--- NOTE | 2019-01-29 10:01 | NUR ---
Discharge Paperwork Faxed to [facility] Attn: Cristina. Facility to transport with corn picker time 2:00 p.m.
--- NOTE | 2019-01-29 10:36 | NUR ---
PT ALERT TO PERSON ONLY, CONFUSION AND SHORT TERM MEMORY DEFICITS NOTED PER PT BASELINE. PT CALM, IRRITABLE AT TIMES THEN PLEASANT WITH STAFF. PT DID SPIT OUT AM PO MEDS, PT USUALLY MED COMPLIANT WITHOUT DIFFICULTY. PT OBSERVED TO BE RESPONDING TO INTERNAL STIMULI, TALKING TO UNSEEN OTHERS AND PICKING AT UNSEEN OBJECTS. PT AMBULATORY THROUGHOUT UNIT, GAIT STEADY. PT CONTINENT OF BOWEL AND BLADDER, EPISODES OF INCONTINENCE NOTED, CARE PROVIDED NEEDED. SKIN INTACT, NO WOUNDS OR OPEN AREAS NOTED. PLAN IS TO MONITOR PT BEHAVIORS ON Q15 MIN SAFETY CHECKS, ENCOURAGE MED COMPLIANCE AND PREPARE FOR DISCHARGE. PT TO BE PICKED UP AT 2PM VIA [employer] [facility].
--- NOTE | 2019-01-29 11:50 | NUR ---
AM GROUP PT WAS PRESENT FOR MORNING GROUP THERAPY BUT IS UNABLE TO PARTICIPATE AT THIS TIME DUE TO COGNITIVE IMPAIRMENT. PT WAS GIVEN CRAYONS AND PAPER BUT DID NOT UTILIZE THEM. PT SPENT THE MAJORITY OF GROUP CRAWLING AROUND ON THE FLOOR PICKING UP TRASH. PT COULD NOT BE REDIRECTED. PT EXHIBITED NO AGITATION OR AGGRESSION WHILE IN GROUP
--- NOTE | 2019-01-29 12:15 | NUR ---
Patient is discharging today to [facility]. Follow-up will be with Dr Ascencio, visiting psychiatrist. While at [facility], pt's behaviors improved. Pt was no longer aggressive. Pt often would isolate and minimally interact with staff and peers. Pt was easily redirectable at time of discharge.
--- NOTE | 2019-01-29 13:57 | NUR ---
PT DISCHARGED TO [facility]. PT AWAKE AND SMILING AT TIME OF DISCHARGE. PT BELONGINGS AND DISCHARGE PACKET SENT WITH PT.
== END 2019-01-29 13:51 | DRG 885 ==
LOC: 3N 23:13
PROVIDERS: ADMIT Psychiatry & Neurology Psychiatry
DX: F20.0 Paranoid schizophrenia (principal); B19.10 Unspecified viral hepatitis B without hepatic coma; F41.9 Anxiety disorder, unspecified; M19.90 Unspecified osteoarthritis, unspecified site; F79 Unspecified intellectual disabilities; E78.5 Hyperlipidemia, unspecified; D64.9 Anemia, unspecified; G62.9 Polyneuropathy, unspecified; D69.6 Thrombocytopenia, unspecified; Z88.8 Allergy status to other drugs, medicaments and biological substances; Z90.49 Acquired absence of other specified parts of digestive tract; Z87.891 Personal history of nicotine dependence; Z79.82 Long term (current) use of aspirin; Z79.899 Other long term (current) drug therapy